=== PATIENT | female | born 1980 | race Caucasian/White ===

== ENCOUNTER 2021-11-29 06:59 | Day surgery (SDC) | payer BC, OTHER ==
[2021-11-26 17:48] VITALS: BMI 27.4
[2021-11-29] MEDS ORDERED: MIDAZOLAM HCL 2 MG/2 ML SINGLE DOSE VIAL ONE (08:54)
[2021-11-29] MEDS ORDERED: PROPOFOL 20 ML ONE ×2 (08:54)
[2021-11-29] MEDS ORDERED: LIDOCAINE HCL 1%, 10 MG/ML (20ML VIAL) ONE (09:44)
[2021-11-29] MEDS ORDERED: ONDANSETRON 4 MG/2 ML VIAL IVPUSH PRN (11:07)
[2021-11-29] MEDS ORDERED: PROMETHAZINE HCL 25 MG/1 ML VIAL IVPUSH PRN (11:07)
[2021-11-29] MEDS ORDERED: LACTATED RINGERS SOLUTION 1,000 ML IV SCH (11:15)
[2021-11-29 12:54] VITALS: PULSE 80; TEMP 97.6
[2021-11-29 13:10] VITALS: BP 146/75
== END 2021-11-29 12:55 | disposition home or self-care (01) ==
LOC: FASU 06:59
PROVIDERS: ATTEND Orthopaedic Surgery
PROC: 0L833ZZ Division of Right Upper Arm Tendon, Percutaneous Approach (ICD-10-PCS; principal; 2021-11-29 10:48)
DX: M77.11 Lateral epicondylitis, right elbow (principal)
CPT/HCPCS: 84703; 94760